=== PATIENT | male | born 1985 | race American Indian/Alaskan Native ===

== ENCOUNTER 2016-09-16 08:57 | Emergency (ER) | payer MEDICARE ==
[2016-09-16] MEDS ORDERED: TORADOL IM ONE (10:13)
[2016-09-16] MEDS ORDERED: CATAPRES PO ONE (10:13)
--- NOTE | 2016-09-16 10:19 | Emergency Department Report ---
HPI - General Chief Complaint: Headache Time Seen by Provider: 09/16/16 10:12 - HPI HPI: 30-year-old male presents today with headache 2 days. Positive for gradual onset. Denies head injury or trauma. Positive for history of headaches and states this feels similar. Positive for minimal nasal congestion. Patient was seen by PCP yesterday and was given Tylenol, denies symptomatic relief. Describes his pain as 10 out of 10 constant dull pain with sharp pain that comes and goes. Denies fever, chills, nausea, vomiting, visual changes, dizziness, confusion, chest pain, shortness of breath, abdominal pain. Positive for history of hypertension and states that he took his blood pressure medicine (name unknown) this morning. Informed patient that his blood pressure was elevated. ED Past Medical Hx - Past Medical History Previous Medical History?: Yes Hx Hypertension: Yes Hx HIV: Yes - Surgical History Past Surgical History?: No - Social History Smoking Status: Never Smoker Substance Use Type: Prescribed - Medications Home Medications: Home Medications Medication Instructions Recorded Confirmed Last Taken Type Emtricitabine/Tenofovir [Truvada 1 each PO DAILY 09/16/16 09/16/16 09/15/16 History 100 mg-150 mg Tablet] Naproxen [Naprosyn] 500 mg PO BID #30 tablet 09/16/16 Unknown Rx Ritonavir [Norvir] 100 mg PO QDAY 09/16/16 09/16/16 09/16/16 History ED Review of Systems ROS: Stated complaint: HEADACHE Other details as noted in HPI Constitutional: denies: chills, fever, malaise Eyes: denies: eye pain, vision change ENT: congestion. denies: ear pain, throat pain Respiratory: denies: cough, shortness of breath, wheezing Cardiovascular: denies: chest pain, palpitations Endocrine: no symptoms reported Gastrointestinal: denies: abdominal pain, nausea, vomiting Skin: denies: rash Neurological: headache. denies: weakness, numbness, paresthesias Physical Exam - Physical Exam Vital Signs: Vital Signs 09/16/16 09:10 Temperature 98.7 F Pulse Rate 114 H Respiratory 20 Rate Blood Pressure 163/112 O2 Sat by Pulse 100 Oximetry Physical Exam: GENERAL: The patient is well-developed and well-nourished. Patient is in NAD. HEAD: Normocephalic. Atraumatic. EYES: Extraocular motions are intact, PERRL. EARS: External auditory canals and tympanic membranes clear; hearing grossly intact. NOSE: Normal nasal mucosa with no nasal discharge. THROAT: No erythema, swelling or exudates. NECK: Supple, nontender, without lymphadenopathy. No meningitic signs are noted. CHEST/LUNGS: Clear to auscultation throughout. HEART/CARDIOVASCULAR: Regular rate and rhythm. ABDOMEN: Abdomen is soft, nontender. No guarding or rebound tenderness. EXTREMITIES: Peripheral pulses intact. Capillary refill less than 2 seconds. NEURO: Alert and oriented 3, normal gait, fluid speech, EOMs intact, normal facial sensation, strength exam 5/5 upper and lower extremities, GCS equals 15, finger to nose normal, negative Romberg test. ED Course Vital Signs 09/16/16 09:10 Temperature 98.7 F Pulse Rate 114 H Respiratory 20 Rate Blood Pressure 163/112 O2 Sat by Pulse 100 Oximetry ED Medical Decision Making - Lab Data Vital Signs 09/16/16 09/16/16 09/16/16 09:10 10:25 10:33 Temperature 98.7 F 98.0 F Pulse Rate 114 H 95 H 95 H Respiratory 20 18 Rate Blood Pressure 163/112 142/106 Blood Pressure 142/106 [Left] O2 Sat by Pulse 100 99 Oximetry 09/16/16 11:42 Temperature 98.0 F Pulse Rate 92 H Respiratory 18 Rate Blood Pressure Blood Pressure 141/98 [Left] O2 Sat by Pulse 98 Oximetry - Medical Decision Making 30-year-old male presents today with headache. Positive for history of similar headaches and denies recent injury or trauma. His neuro exam is unremarkable. Patient is recommended to follow-up with his primary care provider for his elevated blood pressure levels. Patient is in no acute distress at this time. He will be discharged home and is encouraged to follow up with a primary care provider. He will be sent home on naproxen and is encouraged to return to the emergency room for any worsening symptoms. Critical care attestation.: If time is entered above; I have spent that time in minutes in the direct care of this critically ill patient, excluding procedure time. ED Disposition Clinical Impression: Headache Qualifiers: Headache type: unspecified Headache chronicity pattern: acute headache Intractability: not intractable Qualified Code(s): R51 - Headache HTN (hypertension) Qualifiers: Hypertension type: essential hypertension Qualified Code(s): I10 - Essential ( primary) hypertension Disposition: DISCHARGED TO HOME OR SELFCARE Is pt being admited?: No Does the pt Need Aspirin: No Condition: Stable Instructions: Acute Headache (ED), Hypertension (ED) Additional Instructions: Follow-up with primary care provider. Return to the emergency department if symptoms worsen. Prescriptions: Naproxen [Naprosyn] 500 mg PO BID #30 tablet Referrals: PRIMARY MD SIDNEY [Primary Care Provider] - 3-5 Days CRISTIN CARDOZA MD [Staff Physician] - 3-5 Days Forms: Work/School Release Form(ED) Time of Disposition: 11:56
[2016-09-16 11:45] VITALS: BP 141/98
== END 2016-09-16 11:45 | disposition home or self-care (01) ==
LOC: ED 08:57
DX: R51 Headache (principal); I10 Essential (primary) hypertension
CPT/HCPCS: 96372; 99282; J1885

== ENCOUNTER 2018-09-02 23:16 | Emergency (ER) | payer MEDICARE ==
[2018-09-03] MEDS ORDERED: TYLENOL ONE
[2018-09-03] MEDS ORDERED: TYLENOL PO ONE (00:02)
[2018-09-03 01:26] VITALS: BP 141/93
[2018-09-03] MEDS ORDERED: IBUPROFEN PO ONE (01:52)
[2018-09-03] MEDS ORDERED: REGLAN PO ONE (01:52)
[2018-09-03] MEDS ORDERED: BENADRYL PO ONE (01:52)
--- NOTE | 2018-09-03 02:24 | Emergency Department Report ---
ED Headache HPI - General Chief Complaint: Headache Stated Complaint: HEADACHE Time Seen by Provider: 09/03/18 01:51 - History of Present Illness Initial Comments: Patient is a 32-year-old -[place] male History of HIV positive frequent headaches who presents for headache right frontal 4/10 times today patient states frequent headaches same location and intensity and duration of the past generally relieved by Tylenol however out of medication at this time will not see PCP for 2 more days patient followed by [facility] , pt denies dizziness no fever no URI symptoms no n/v request medication for headache pt endorse ad herence with all rx medications including antivirals. pt is tolerating po intake at time of this interview without symptoms Timing/Duration: other (1 day ) Quality: moderate Head Injury Location: frontal Recent Head Trauma: occasional headaches Modifying Factors: improves with: other (none ) Allergies/Adverse Reactions: Allergies diazepam [From Valium] Adverse Reaction (Verified 09/16/16 10:39) Vomiting Home Medications: Ambulatory Orders Emtricitabine/Tenofovir (Tdf) [Truvada 100 mg-150 mg Tablet] 1 each PO DAILY 09/16/16 Naproxen [Naprosyn] 500 mg PO BID #30 tablet 09/16/16 Ritonavir [Norvir] 100 mg PO QDAY 09/16/16 traMADol [Ultram] 50 mg PO Q6HR PRN #20 tablet 04/27/18 Acetaminophen [Tylenol Extra Strength] 1,000 mg PO QID PRN #30 tablet 09/03/18 Metoclopramide [Reglan] 10 mg PO TID PRN #30 tab 09/03/18 diphenhydrAMINE [Benadryl CAP] 25 mg PO Q8HR PRN #30 capsule 09/03/18 ED Review of Systems ROS: Stated complaint: HEADACHE Other details as noted in HPI Constitutional: denies: chills, fever Eyes: denies: eye pain, eye discharge, vision change ENT: as per HPI Respiratory: denies: cough, shortness of breath, wheezing Cardiovascular: denies: chest pain, palpitations Endocrine: no symptoms reported Gastrointestinal: denies: abdominal pain, nausea, diarrhea Genitourinary: denies: urgency, dysuria Musculoskeletal: denies: back pain, joint swelling, arthralgia Skin: denies: rash, lesions Neurological: headache. denies: weakness, numbness, paresthesias, confusion, abnormal gait, vertigo Psychiatric: denies: anxiety, depression Hematological/Lymphatic: denies: easy bleeding, easy bruising ED Past Medical Hx - Past Medical History Previous Medical History?: Yes Hx Hypertension: Yes Hx HIV: Yes - Surgical History Past Surgical History?: No - Social History Smoking Status: Never Smoker Substance Use Type: None - Medications Home Medications: Home Medications Medication Instructions Recorded Confirmed Last Taken Type Emtricitabine/Tenofovir (Tdf) 1 each PO DAILY 09/16/16 06/03/17 09/15/16 History [Truvada 100 mg-150 mg Tablet] Naproxen [Naprosyn] 500 mg PO BID #30 tablet 09/16/16 06/03/17 Unknown Rx Ritonavir [Norvir] 100 mg PO QDAY 09/16/16 06/03/17 09/16/16 History traMADol [Ultram] 50 mg PO Q6HR PRN #20 tablet 04/27/18 Unknown Rx Acetaminophen [Tylenol Extra 1,000 mg PO QID PRN #30 tablet 09/03/18 Unknown Rx Strength] Metoclopramide [Reglan] 10 mg PO TID PRN #30 tab 09/03/18 Unknown Rx diphenhydrAMINE [Benadryl CAP] 25 mg PO Q8HR PRN #30 capsule 09/03/18 Unknown Rx ED Physical Exam - General Limitations: No Limitations General appearance: alert, in no apparent distress - Head Head exam: Present: atraumatic, normocephalic - Eye Eye exam: Present: normal appearance, PERRL, EOMI Pupils: Present: normal accommodation - ENT ENT exam: Present: normal orophraynx, mucous membranes moist, TM's normal bilaterally, normal external ear exam - Neck Neck exam: Present: normal inspection, full ROM. Absent: tenderness, meningismus, lymphadenopathy, thyromegaly - Respiratory Respiratory exam: Present: normal lung sounds bilaterally. Absent: respiratory distress, wheezes, stridor, chest wall tenderness - Cardiovascular Cardiovascular Exam: Present: regular rate, normal rhythm, normal heart sounds. Absent: systolic murmur, diastolic murmur, rubs, gallop - GI/Abdominal GI/Abdominal exam: Present: soft, normal bowel sounds. Absent: distended, bruit, hernia - Rectal Rectal exam: Present: deferred - Extremities Exam Extremities exam: Present: normal inspection - Back Exam Back exam: Present: normal inspection, full ROM - Neurological Exam Neurological exam: Present: alert, oriented X3, CN II-XII intact, normal gait, reflexes normal. Absent: motor sensory deficit - Psychiatric Psychiatric exam: Present: normal affect, normal mood - Skin Skin exam: Present: warm, dry, intact, normal color. Absent: rash ED Course Vital Signs 09/02/18 09/02/18 09/03/18 23:33 23:47 01:23 Temperature 98.2 F 98.2 F Pulse Rate 91 H 92 H 85 Respiratory 18 18 16 Rate Blood Pressure 145/104 145/104 Blood Pressure 141/93 [Left] O2 Sat by Pulse 100 100 99 Oximetry ED Medical Decision Making - Medical Decision Making This is usual headache for this patient improved with medications given in ED plan DC to home a prescription for Tylenol and Benadryl patient will follow up with [facility] doctor in 2 days as scheduled pt is currently tolerating po intake , appears well hydrated well nourished nontoxic there is no fever or neck pain, neuro is intact. patient given instructions to return the ED should symptoms worsen patient verbalizes agreement and understanding and signed patient DC'd to home in stable condition at this time Critical care attestation.: If time is entered above; I have spent that time in minutes in the direct care of this critically ill patient, excluding procedure time. ED Disposition Clinical Impression: Headache Qualifiers: Headache type: unspecified Headache chronicity pattern: acute headache Intractability: not intractable Qualified Code(s): R51 - Headache Disposition: DC-01 TO HOME OR SELFCARE Is pt being admited?: No Does the pt Need Aspirin: No Condition: Stable Instructions: Acute Headache (ED) Prescriptions: Acetaminophen [Tylenol Extra Strength] 1,000 mg PO QID PRN #30 tablet PRN Reason: Headache diphenhydrAMINE [Benadryl CAP] 25 mg PO Q8HR PRN #30 capsule PRN Reason: headache Metoclopramide [Reglan] 10 mg PO TID PRN #30 tab PRN Reason: headache Referrals: PRIMARY CARE,MD [Primary Care Provider] - 3-5 Days Forms: Work/School Release Form(ED) Time of Disposition: 02:31
== END 2018-09-03 02:37 | disposition home or self-care (01) ==
LOC: ED 23:16
DX: R51 Headache (principal); I10 Essential (primary) hypertension; Z88.4 Allergy status to anesthetic agent
CPT/HCPCS: 99281